=== PATIENT | female | born 1995 | race Caucasian/White ===

== ENCOUNTER 2024-09-02 10:59 | Observation (INO) ==
[2024-09-02 11:24] VITALS: RESP 18
--- NOTE | 2024-09-02 11:36 | Emergency Department Note ---
HPI - General Adult General Chief complaint: Alcohol Stated complaint: NEEDS FLUIDS Time Seen by Provider: 09/02/24 11:30 Source: patient Mode of arrival: walk-in Limitations: no limitations History of Present Illness HPI narrative: This is a 29 year old female patient that presents to the ER with c/o having N/V because she has been drinking alcohol the past 3 days. Patient denies any chest pain, SOB, abdominal pain, fever, chills or diarrhea Onset (ago): hour(s) (2) Associated symptoms: Reports nausea/vomiting Treatments prior to arrival: Reports none Related Data Allergies Allergy/AdvReac Type Severity Reaction Status Date / Time lisdexamfetamine (From Allergy Verified 09/02/24 11:21 Vyvdiya) Review of Systems Status of ROS 10 or more systems reviewed and unremark able except as noted in history and below Constitutional Denies: fever, chills, change in weight, fatigue, malaise, night sweats or change in sleep pattern Eyes Denies: change in vision, blurry vision, blind spots, light sensitivity or eye discomfort Ears, nose, mouth, and throat Denies: throat pain, neck pain, throat swelling, difficulty swallowing, hoarseness, mouth pain, swelling of lips/tongue or dry mouth Cardiovascular Denies: chest pain, palpitations, edema, swelling of feet/ankles, lightheadedness or shortness of breath with exertion Respiratory Denies: shortness of breath, cough, wheezing, stridor, pain on inspiration, change in phlegm color or coughing up blood Gastrointestinal Reports: nausea and vomiting; Denies: abdominal pain, coffee grounds in vomit, heartburn, diarrhea, constipation or bloating Genitourinary Denies: painful urination, urinary frequency, urinary urgency, urinary incontinence, blood in urine or difficulty voiding Musculoskeletal Denies: back pain, neck pain, extremity pain, extremity swelling or joint pain Integumentary/Breast Denies: rash, itching, redness, skin pain, skin tenderness, skin swelling or sores Neurological Denies: headache, numbness in extremities, weakness in extremities, lack of coordination or dizziness Psychiatric Denies: anxiety, mood swings, panic attacks, change in sleep pattern or hopelessness Endocrine Denies: excessive urination, excessive thirst, fatigue, cold intolerance or excessive sweating Hematologic/Lymphatic Denies: easy bruising, easy bleeding or enlarged lymph nodes Allergic/Immunologic Denies: hives, throat swelling, tongue swelling, facial swelling, wheezing or itchy eyes PFSH [facility] Medical History (Updated 09/02/24 @ 11:26 by Rachel Bhatia RN) Diabetes Surgical History (Updated 09/02/24 @ 11:28 by Rachel Bhatia RN) Hx of tonsillectomy History of gastric bypass Social History Smoking status: never smoker Exam Constitutional: normal general appearance and no apparent distress Vital Signs - 24 hr 09/02/24 11:19 Temperature 98 F Pulse Rate 118 H Respiratory Rate 18 Blood Pressure 120/82 Pulse Oximetry 97 Oxygen Delivery Me thod Room Air HENMT: normocephalic, head/scalp atraumatic, hearing grossly normal bilaterally, external ears normal, nasal mucous membranes normal, external nose normal, oral mucous membranes normal and oropharynx normal Eyes: PERRL, EOMs intact bilaterally, conjunctivae normal and no scleral icterus Neck/C-Spine: visual inspection normal and trachea midline Lymph: no lymphadenopathy noted Chest: inspection of chest normal and palpation of chest normal Respiratory: breath sounds equal bilaterally, normal respiratory effort, clear to auscultation bilaterally, no wheezes, no retractions and no use of accessory muscles Cardiovascular: normal heart rate noted, regular rhythm noted, no gallop, no rub, no murmur, no JVD, no clicks, peripheral pulses 2+ throughout and no additional abnormal heart sounds Gastrointestinal: abdomen normal to inspection, abdomen soft to palpation, nontender to palpation, nontender to percussion, nondistended, normoactive bowel sounds, no hepatosplenomegaly, no masses, no pulsatile mass, no ascites and no hernia Genitourinary: no CVA tenderness Back/Pelvis: spine normal to inspection Extremities: normal to inspection, normal to palpation, no tenderness, full ROM, no joint enlargement and no deformity Neurology: director of student services II-XII intact, no movement abnormality noted, no focal motor deficit noted, no sensory deficits noted, gait normal, speech normal, coordination normal, no pronator drift noted, no fasciculations noted and GCS normal Psychiatry: mental status grossly normal, oriented x3, thought process normal, cooperative, affect normal, psychomotor activity normal and memory normal Skin: skin color normal Course Course Hospital Course: 1239: due to ongoing nausea and critically low potassium will admit patient to the hospital for further evaluation and treatment. No s/s of acute distress noted Vital Signs Vital signs: Vital Signs Temperature 98 F 09/02/24 11:19 Pulse Rate 118 H 09/02/24 11:19 Respiratory Rate 18 09/02/24 11:19 Blood Pressure 120/82 09/02/24 11:19 Pulse Oximetry 97 09/02/24 11:19 Oxygen Delivery Method Room Air 09/02/24 11:19 Temperature 98 F 09/02/24 11:19 Pulse Rate 118 H 09/02/24 11:19 Respiratory Rate 18 09/02/24 11:19 Blood Pressure 120/82 09/02/24 11:19 Pulse Oximetry 97 09/02/24 11:19 Oxygen Delivery Method Room Air 09/02/24 11:19 Medical Decision Making Differential Diagnosis Differential Diagnosis: viral illness Medical Records Medical records reviewed: Yes I reviewed the patient's medical records Lab Data Lab results reviewed: Yes I reviewed the patient's lab results Labs: Lab Results 09/02/24 09/02/24 Range/Units 11:39 11:42 WBC 5.7 (4.3-9.3) K/uL RBC 5.6 H (4.00-5.50) M/uL Hgb 11.5 L (12.5-15.8) gm/dL Hct 36.5 (35.9-46.7) % MCV 65.4 L (81.0-93.7) fl MCH 20.6 L (27.6-32.2) pg MCHC 31.6 L (33.1-35.3) g/dl RDW 18.1 H (11.4-14.2) % Plt Count 341 (152-353) K/uL MPV 8.9 (6.9-10.8) fl Gran % 53.5 (47.8-71.3) % Lymph % (Auto) 38.4 (20.0-43.0) % Wilkes % (Auto) 7.5 (3.6-9.8) % Eos % (Auto) 0.1 L (0.4-2.8) % Baso % (Auto) 0.5 (0.1-0.85) Lymph # (Auto) 2.2 (1.1-3.1) Wilkes # (Auto) 0.4 L (1.1-3.1) Eos # (Auto) 0.0 (0.0-0.2) Baso # (Auto) 0.0 (0.0-0.1) Absolute Gran (auto) 3.1 (2.3-6.0) Sodium 136 (136-145) mmol/L Potassium 2.5 L (3.6-5.2) mmol/L Chloride 94.0 L (98-107) mmol/L Carbon Dioxide 28 (21-32) mmol/L Anion Gap 14.0 (4-14) mEq/L BUN 4 L (7-18) mg/dL Creatinine 0.6 (0.6-1.3) mg/dL Estimated GFR 123.0 (>59.9) Glucose 147 H (70-110) mg/dL Calcium 8.4 L (8.5-10.1) mg/dL Total Bilirubin 0.35 (0.0-1.0) mg/dL AST 74 H (15-37) U/L ALT 31 (30-65) U/L Alkaline Phosphatase 122 (50-136) U/L Total Protein 7.7 (6.4-8.2) g/dL Albumin 3.7 (3.4-5.0) g/dL Lipase 37.0 (16.0-77.0) U/L Urine Color Yellow (STRAW/YELL.) Urine Appearance Clear (CLEAR) Ur Specific [place] 1.010 (1.001-1.035) Urine Protein 2+ (NEGATIVE) Urine Glucose (UA) Normal (NORMAL) Urine Ketones Negative (NEGATIVE) Urine Occult Blood Negative (NEG - TRACE) Urine Nitrite Negative (NEGATIVE) Urine Bilirubin Negative (NEGATIVE) Urine Urobilinogen Normal (NORMAL) Ur Leukocyte Esterase Negative (NEGATIVE) Urine Test Negative (Negative) Fluid pH 6.0 (5 - 9) Discharge Plan Discharge Patient Disposition: Admitted As Observation Condition: Stable Chief Complaint: Alcohol Clinical Impression: Hypokalemia, Nausea & vomiting Print Language: Frisian Referrals: Cyndee Wu RN [Primary Care Provider] - Time of Disposition: 12:41
[2024-09-02] MEDS: ONDANSETRON HCL/PF 4 MG/2 ML VIAL INJ STA (11:40)
[2024-09-02] MEDS: 0.9 % SODIUM CHLORIDE 1000 ML 1,000 ML IV STA (11:40)
[2024-09-02 12:06] LABS: Urine Appearance CLEAR (CLEAR); Urine Blood NEGATIVE (NEG - TRACE); Urine Color YELLOW (STRAW/YELL.); Urine Urobilinogen Normal (NORMAL)
[2024-09-02 12:06] LABS: Basophils%(Percent) Auto 0.5 (0.1-0.85); Eosinophils%(Percent) Auto 0.1 % (0.4-2.8); Granulocytes % - Auto 53.5 % (47.8-71.3); Granulocytes#(Absolute)- Auto 3.1 (2.3-6.0); Hematocrit 36.5 % (35.9-46.7); Mean Corpuscular Volume 65.4 fl (81.0-93.7); Monocytes #(Absolute)- Auto 0.4 (1.1-3.1); Monocytes %(Percent)- Auto 7.5 % (3.6-9.8); Platelet Count 341 K/uL (152-353); White Blood Count 5.7 K/uL (4.3-9.3)
[2024-09-02 12:11] LABS: Potassium 2.5 mmol/L (3.6-5.2)
[2024-09-02] MEDS ORDERED: 0.9 % SODIUM CHLORIDE 1000 ML 1,000 ML IV ONE (12:28)
[2024-09-02] MEDS: 0.9 % SODIUM CHLORIDE 1000 ML 1,000 ML IV ONE (12:30)
[2024-09-02] MEDS: POTASSIUM CHLORIDE 20 MEQ TAB.ER.PRT PO ONE (12:30)
[2024-09-02] MEDS: POTASSIUM CHLORIDE IN WATER 10 MEQ/100 ML PIGGYBACK IV ONE ×2 (12:30→13:17)
[2024-09-02] MEDS ORDERED: POTASSIUM CHLORIDE IN WATER 10 MEQ/100 ML PIGGYBACK IV ONE (13:17)
[2024-09-02 15:59] VITALS: BP 123/81; PULSE 102; TEMP 97.9
[2024-09-02] MEDS ORDERED: MAGNESIUM, ALUMINUM HYDROXIDE 30 ML ORAL.SUSP PO PRN (17:00)
[2024-09-02] MEDS ORDERED: 0.9 % SODIUM CHLORIDE 1000 ML 1,000 ML IV SCH ×2 (17:00)
[2024-09-02] MEDS ORDERED: bisacodyL 10 MG SUPP.RECT PR PRN (17:00)
[2024-09-02] MEDS ORDERED: ACETAMINOPHEN 500 MG TABLET PO PRN (17:00)
[2024-09-02] MEDS ORDERED: ONDANSETRON HCL/PF 4 MG/2 ML VIAL INJ PRN (17:00)
[2024-09-02] MEDS ORDERED: POTASSIUM CHLORIDE 20 MEQ TAB.ER.PRT PO ONE (19:00)
== END 2024-09-02 17:01 | disposition left against medical advice (07) ==
LOC: MS 10:59 → ED 10:59 → MS 15:15
PROVIDERS: ADMIT Nurse Practitioner Family; ATTEND Family Medicine